=== PATIENT | female | born 1945 | race Caucasian/White ===

== ENCOUNTER 2023-10-23 08:38 | Day surgery (SDC) | payer OTHER ==
[~2023-10-23] VITALS: Ht 162.6 cm; Wt 56.7 kg
[2023-10-23 09:28] VITALS: O2SAT 98
[2023-10-23] MEDS ORDERED: MIDAZOLAM HCL 5 MG/5 ML VIAL ONE (11:26)
[2023-10-23] MEDS ORDERED: MEPERIDINE 100 MG INJ. 100 MG/ML VIAL ONE (11:26)
[2023-10-23 13:52] VITALS: BP_SYST 123; PULSE 72; RESP 11
== END 2023-10-23 13:07 | disposition home or self-care (01) ==
LOC: SDS 08:38 → SMU 08:47 → SDS 13:07
PROVIDERS: ATTEND Internal Medicine Gastroenterology
DX: K92.1 Melena (principal); K29.50 Unspecified chronic gastritis without bleeding; B96.81 Helicobacter pylori [H. pylori] as the cause of diseases classified elsewhere; K21.9 Gastro-esophageal reflux disease without esophagitis; R10.9 Unspecified abdominal pain; J45.909 Unspecified asthma, uncomplicated; E78.5 Hyperlipidemia, unspecified; Z90.710 Acquired absence of both cervix and uterus; Z79.899 Other long term (current) drug therapy; Z88.2 Allergy status to sulfonamides; Z88.0 Allergy status to penicillin
CPT/HCPCS: 43239; 88305; 88312; 88313; G0378; J2250; J2175